=== PATIENT | male | born 1990 | race Caucasian/White ===

== ENCOUNTER 2016-11-03 13:47 | Emergency (ER) | payer MEDICAID ==
[2016-11-03 13:54] VITALS: O2SAT 96
--- NOTE | 2016-11-03 15:20 | UCPHY ---
H & P Patient Type: Established Chief Complaint Nursing Narrative: pt reports dog jumped striking left side of face on tuesday, pain to cheek/nose continue Time Seen by Provider: 11/03/16 15:12 HPI/ROS: Chief complaint nose pain HPI: 26-year-old male was struck in the nose by his dog 3 nights ago. Patient has had pain and swelling to the bridge of his nose since that time. His roommate noted that it looked little deformed in his question with has a nose fracture. Did not have any bleeding. Not having difficulty breathing. Has mild headache but no loss of conscious. No nausea or vomiting. No numbness or tingling. No neck pain. No prior injuries ROS: 10 point Review of Systems is negative except as noted in the HPI. Past medical history none Medications: None Allergies: None Social history: Nonsmoker, occasional alcohol Physical exam: General: Awake, alert, no acute distress HEENT: Eyes are normal, pupils equal round reactive light accommodation, extraocular movements intact, no hyphema Nose: He has got swelling and ecchymosis to bridge of nose. There is no nasal bone tenderness with tenderness at chondral junction. There is no septal hematoma. Mouth: Normal dentition, no mandibular tenderness Face: No zygoma tenderness. Neck: Supple, full range of motion - Personal History Current Tetanus/Diphtheria Vaccine: Yes Current Tetanus Diphtheria and Acellular Pertussis (TDAP): Yes - Medical/Surgical History Hx Asthma: No Hx Chronic Respiratory Disease: No Hx Diabetes: No Hx Cardiac Disease: No Hx Renal Disease: No Hx Cirrhosis: No Hx Alcoholism: No Hx HIV/AIDS: No Hx Splenectomy or Spleen Trauma: No Other PMH: adrenal hyperplasia - Family History Significant Family History: No pertinent family hx - Social History Smoking Status: Never smoked Constitutional: Initial Vital Signs Temperature (C) 36.6 C 11/03/16 13:51 Heart Rate 79 11/03/16 13:51 Respiratory Rate 16 11/03/16 13:51 Blood Pressure 100/65 11/03/16 13:51 O2 Sat (%) 96 11/03/16 13:51 O2 Delivery Mode Room Air Allergies/Adverse Reactions: No Known Allergies Allergy (Unverified 11/03/16 13:50) Home Medications: Medication Instructions Recorded DEXAMETHASONE 08/02/14 FLUDROCORTISONE ACETATE 08/02/14 Medical Decision Making ED Course/Re-evaluation: Patient with nasal contusion versus fracture. He has mild of swelling which is asymmetrical at this time. A we discussed the possibility of getting an x-ray which is likely not change his care at this time. He has agreed with plan to continue the ice full monitor for about a week. If he still feels that there is deformity will follow up with ENT in about a week or 2 for evaluation. Departure - Departure Disposition: Home, Routine, Self-Care Clinical Impression: Nose injury Condition: Good Instructions: Nasal Contusion (ED) Additional Instructions: Continue apply ice as needed 15 minutes every hour while awake. You may take ibuprofen and acetaminophen as needed for pain. If you notice that after a week or more you continue to have a deformity to your nose follow up with Ear Nose and Throat doctor, Dr. Case. Referrals: THOMAS Zamora,. [Primary Care Provider] - As per Instructions Dulce Case MD [Medical Doctor] - As per Instructions - PQRS PQRS Measurement: NA
[2016-11-03 15:29] VITALS: BP 115/68; PULSE 80; RESP 18; TEMP 98.1
== END 2016-11-03 15:28 | disposition home or self-care (01) ==
LOC: CED 13:47
DX: S09.92XA Unspecified injury of nose, initial encounter (principal); W54.1XXA Struck by dog, initial encounter
CPT/HCPCS: 99213-PO; G0463-PO

== ENCOUNTER 2016-12-12 22:10 | Emergency (ER) | payer MEDICAID ==
[2016-12-12 22:14] VITALS: RESP 16; TEMP 98.1; O2SAT 95
--- NOTE | 2016-12-12 23:16 | EDPHY ---
H & P Smoking Status: Never smoked Time Seen by Provider: 12/12/16 22:59 HPI/ROS: CHIEF COMPLAINT: Left arm laceration HISTORY OF PRESENT ILLNESS: This is a 26-year-old male presenting to the emergency department complaining of laceration to left forearm. Patient states he and a friend of his were trying to get a drone out of a tree, as he was climbing down the tree he caught his arm on a branch cutting his left forearm. Denies any other injuries. Tetanus up-to-date 5 years ago. REVIEW OF SYSTEMS: Constitutional: No fever, no chills. Eyes: No blurred vision Cardiovascular: No chest pain, no palpitations. Respiratory: No cough, no shortness of breath. Gastrointestinal: No abdominal pain, no vomiting. Musculoskeletal: No back pain. Left forearm laceration Skin: No rashes. Neurological: No headache. (Bea Goel) Physical Exam: General Appearance: Alert, no distress. Eyes: Pupils equal and round no pallor or injection. Respiratory: There are no retractions, nonlabored respiratory effort Cardiovascular: Regular rate and rhythm. Gastrointestinal: Abdomen is soft and nontender, no masses, no injuries Neurological: No focal deficits Skin: Warm and dry, no rashes. Musculoskeletal: Vertebral cervical spine nontender on palpation full range of motion. Left anterior forearm 3 cm laceration, no obvious deformity. Positive CMS intact Extremities: symmetrical, full range of motion. Psychiatric: Patient is oriented X 3, there is no agitation. (Bea Goel) Constitutional: Initial Vital Signs Temperature (C) 36.7 C 12/12/16 22:12 Heart Rate 91 12/12/16 22:12 Respiratory Rate 16 12/12/16 22:12 Blood Pressure 110/75 12/12/16 22:12 O2 Sat (%) 95 12/12/16 22:12 O2 Delivery Mode Room Air Allergies/Adverse Reactions: No Known Allergies Allergy (Unverified 12/12/16 22:12) Home Medications: Medication Instructions Recorded DEXAMETHASONE 08/02/14 FLUDROCORTISONE ACETATE 08/02/14 Medical Decision Making Procedures: Procedure: Laceration repair. Verbal consent was obtained from the patient. 3cm laceration on the left anterior forearm. 0.5% bupivacaine with epinephrine 3 mL local infiltrate. The wound was irrigated. There were no deep structures involved. The wound was repaired 5-0 Ethilon #4 sutures placed The procedure was performed by myself. A dressing was applied by our EMT. (Bea Goel) ED Course/Re-evaluation: Discussed the plan of care: Wound irrigation, laceration repair (Bea Goel) PHYSICIAN DOCUMENTATION: The patient was evaluated and managed by the Physician Utility Lineman. My co- signature indicates that I have reviewed this chart and I agree with the findings and plan of care as documented. I am the secondary supervising physician. (Vandana Rudolph) Differential Diagnosis: Other differential diagnosis considered but not limited to foreign body, soft tissue infection and muscle laceration (Bea Goel) Departure - Departure Disposition: Home, Routine, Self-Care Clinical Impression: Laceration Condition: Good Instructions: Care For Your Stitches (ED), Laceration (ED) Additional Instructions: Discussed discharge instructions 1. Have sutures removed in 10 days 2. Monitor for any signs of infection, such as: Redness, red streaks, swelling drainage 3. No exposure to [place] water, river water as the skin increase your chances of a wound infection 4. Keep initial dressing on for 24 hours, then after daily dressing changes Referrals: NONE *PRIMARY CARE P,. [Primary Care Provider] - As per Instructions [facility] [Clinic] - As per Instructions
[2016-12-13 00:04] VITALS: BP 117/78; PULSE 77
== END 2016-12-13 00:04 | disposition home or self-care (01) ==
PROC: 0HQEXZZ Repair Left Lower Arm Skin, External Approach (ICD-10-PCS; principal; 2016-12-12)
DX: S51.812A Laceration without foreign body of left forearm, initial encounter (principal); W23.1XXA Caught, crushed, jammed, or pinched between stationary objects, initial encounter